=== PATIENT | female | born 1940 | race Caucasian/White ===

== ENCOUNTER 2021-09-13 11:43 | Outpatient (CLI) | payer OTHER | END 2021-09-13 12:00 | disposition home or self-care (01) | LOC: WOUND MED 11:43 | PROVIDERS: ATTEND Specialist | DX: E11.621 Type 2 diabetes mellitus with foot ulcer (principal); L97.312 Non-pressure chronic ulcer of right ankle with fat layer exposed; R60.0 Localized edema | CPT/HCPCS: 11042; 11045; G0463; A4554; A4930; A6212; A6216; A6219; A6266 ==

== ENCOUNTER 2021-09-20 10:49 | Outpatient (CLI) | payer OTHER | END 2021-09-20 13:45 | disposition home or self-care (01) | LOC: WOUND MED 10:49 | PROVIDERS: ATTEND Specialist | DX: E11.621 Type 2 diabetes mellitus with foot ulcer (principal); L97.312 Non-pressure chronic ulcer of right ankle with fat layer exposed; R60.0 Localized edema | CPT/HCPCS: 11042; 11045 ×2; A4554; A4930; A6216; A6219 ==